=== PATIENT | male | born 1970 | race Caucasian/White ===

== ENCOUNTER 2023-04-12 23:35 | Emergency (ER) | payer BC ==
[~2023-04-12] VITALS: Ht 188 cm; Wt 111.1 kg
[2023-04-13] MEDS ORDERED: CLIN300C12 PO (00:38)
[2023-04-13] MEDS ORDERED: CLINDAMYCIN HCL 150 MG CAPSULE ONE (00:43)
[2023-04-13 00:47] VITALS: BP 121/75; TEMP 97.6; O2SAT 99
[2023-04-13] MEDS ORDERED: CLINDAMYCIN HCL 150 MG CAPSULE PO ONE (01:00)
== END 2023-04-13 00:48 | disposition home or self-care (01) ==
LOC: ER 23:38
DX: L03.313 Cellulitis of chest wall (principal); Z98.890 Other specified postprocedural states